=== PATIENT | female | born 1985 | race Two or more races ===

== ENCOUNTER 2024-04-03 20:10 | Emergency (ER) | payer OTHER ==
[~2024-04-03] VITALS: Ht 162.6 cm; Wt 66.3 kg
[2024-04-03 21:23] VITALS: BP 130/85; PULSE 104; RESP 18; TEMP 99.9; O2SAT 96
[2024-04-03] MEDS: KETOROLAC TROMETH 60MG/2ML VIAL IM ONE (22:03)
[2024-04-03] MEDS ORDERED: IBUP-1456 PO (22:43)
== END 2024-04-03 22:52 | disposition home or self-care (01) ==
LOC: ER 20:10
DX: S92.351A Displaced fracture of fifth metatarsal bone, right foot, initial encounter for closed fracture (principal); Z79.1 Long term (current) use of non-steroidal anti-inflammatories (NSAID); W22.8XXA Striking against or struck by other objects, initial encounter; Y93.02 Activity, running; Y92.89 Other specified places as the place of occurrence of the external cause; Y99.8 Other external cause status
CPT/HCPCS: 29515; 73630; 96372; 99283; J1885